=== PATIENT | male | born 1970 | race Caucasian/White ===

== ENCOUNTER 2024-07-21 11:55 | Outpatient (CLI) | payer OTHER, SELFPAY ==
--- NOTE | ~2024-07-21 | XR_ITS ---
EXAMINATION: XR chest 2V 07/21/2024 12:09 INDICATION: Dyspnea PROCEDURE: 2 view chest COMPARISON: No prior studies for comparison. FINDINGS: The lungs are clear. The cardiomediastinal silhouette is within normal limits. There are no pleural effusions. There is no pneumothorax suspected. IMPRESSION: 1: NO ACUTE CARDIOPULMONARY DISEASE. Reviewed, dictated and finalized at location B.
== END 2024-07-21 11:56 | disposition home or self-care (01) ==
LOC: ANHIMG 11:59
PROVIDERS: PCP Emergency Medicine; Visit Provider Emergency Medicine
DX: R06.00 Dyspnea, unspecified (principal)
CPT/HCPCS: 71046

== ENCOUNTER 2025-05-18 11:02 | Outpatient (CLI) | payer OTHER, SELFPAY ==
--- NOTE | ~2025-05-18 | XR_ITS ---
HISTORY: Lt big toe pain, REDNESS, SWELLING PT STATES HAS GOUT COMPARISON: None TECHNIQUE: 2 views of the left foot were performed FINDINGS: No acute fracture or dislocation is appreciated. Moderate degenerative disease is noted. The base of the fifth metatarsal is intact. Large calcaneal spur is noted. Significant soft tissue swelling along the plantar surface of the left forefoot, presumably within the area of clinical concern. Joint space narrowing within the first metatarsophalangeal joint space with sclerosis is identified. Normal bone mineralization is identified. Juxta-articular erosion is identified within the distal phalanx of the great toe, best visualized on lateral view No overhanging edges are appreciated. No discrete L5 identified Incidental notation is made of os trigonum. IMPRESSION: Degenerative disease with soft tissue swelling, as detailed above. Reviewed, dictated and finalized at location A.
--- OUTSIDE RECORDS SUMMARY | 2025-05-18 11:12 | XMS_ITS | Clinical Summary ---
Author Organization [facility] Address [address] [place] [address] Care Team Providers Care Bead Flipper Name Role Phone Rebeca Washington MD, Kirk Britton Primary Care Provider [phone] Source Comments [facility],non-owned Affiliates and Associated Physician Practices is amultiple site organization consisting of ambulatory clinics and hospital sitesin [place], [place], [place] and [place]. This disclosure is being madepursuant to the Care Everywhere program and may not contain all information available regarding this patient. Last updated 18.[employer] [facility] Allergies No known active allergies Medications * Be aware that medications may not be up to date on this document. Alwaysverify current medications with the patient. omeprazole (PRILOSEC OTC) 20 MG tabletIndication s:Diarrhea,Abdom inal pain, generalized Take 20 mg by mouth once daily. Active ALPRAZolam (XANAX) 0.25 MG tablet TAKE ONE TABLET BY MOUTH THREE TIMES A DAY NEEDED FOR ANXIETY 90 tablet 07/01/2018 Active Active Problems Problem Noted Date Diagnosed Date IGT (impaired glucose tolerance) a1c 6 6 Primary osteoarthritis of both knees 11/14/2015 Gastroesophageal reflux disease without esophagi tis 11/14/2015 Herpes simplex 08/25/2011 Overview (08/25/2011): Oral and genital, and causes dermatitis on valtrex suppression Family History Medical History Relation Name Comments Diabetes Brother CAD (Coronary Artery Disease) Other aunt uncle paternal Diabetes Other aunt uncle salgado rnal CAD (Coronary Artery Disease) Paternal Grandfather Relation Name Status Comments Brother Other Paternal Grandfather Social History Tobacco Use Types Packs/Day Years Used Date Smoking Tobacco: Never Smokeless Tobacco: Never Alcohol Use Standard Drinks/Week Comments Yes 0 (1 standard drink = 0.6 oz pur e alcohol) Sex and Gender Information Value Date Recorded Sex Assigned at Not on file Legal Sex Male 12:49 PM AUTOMATIC CHIEF Gender Identity Not on file Sexual Orientation Not on file Last Filed Vital Signs Vital Sign Reading Time Taken Comments Blood Pressure 115/61 06/06/2019 2:30 PM CDT Pulse 61 06/06/2019 2:49 PM CDT Temperature 37.1 C (98.8 F) 06/06/2019 11:02 AM CDT Respiratory Rate 18 06/06/2019 11:02 AM CDT Oxygen Saturation 96% 06/06/2019 2:30 PM CDT Inhaled Oxygen Concentration - - Weight 77.6 kg (171 lb) 06/06/2019 11:02 AM CDT Height 170.2 cm (5' 7) 06/06/2019 11:02 AM CDT Body Mass Index 26.78 06/06/2019 11:02 AM CDT Plan of Treatment Health Maintenance Due Date Last Done Comments COLOGUARD (AGES 45-75) - COLON CA SCREENING 1969 COLON MONITORING 1969 COLONOSCOPY - COLON CA SCREENING 1969 CT COLONOGRAPHY - COLON CA SCREENING 1969 Colorectal Cancer Screening 1969 FIT - COLON CA SCREENING 1969 FLEX SIG - COLON CA SCREENING 1969 HIV SCREENING 1984 HEPATITIS C SCREENING 03/17/1987 DTAP/TDAP/TD VACCINES (1 - Tdap) 1988 HEPATITIS B VACCINE (1 of 3 - 19+ 3-dose series) 1988 PNEUMOCOCCAL VACCINE 50+ (1 of 1 - PCV) 2019 ZOSTER VACCINE (1 of 2) 2019 LIPID TESTING 11/14/2020 11/14/2015, 08/25/2011 SCREENING FOR DIABETES 06/06/2022 9, 11/14/2015, 11/14/2015, Additional history exists COVID-19 VACCINE (1 - 2023- season) 2024 DEPRESSION SCREENING 09/27/2024 INFLUENZA VACCINE (#1) 2025 HIB VACCINE Aged Out No longer eligi ble based on patient's age to complete this topic HPV VACCINE Aged Out No longer eligi ble based on patient's age to complete this topic MENINGOCOCCAL (Group B) VACCINE SHARED DECISION-MAKING Aged Out No longer eligible based on patient's age to complete this topic MENINGOCOCCAL GROUPS A/C/Y/W VACCINE Aged Out No longer eligible based on patient's age to complete this topic Procedures Procedure Name Priority Date/Time Associated Diagnosis Comments COMPREHENSIVE METABOLIC PANEL STAT 06/06/2019 11:12 AM CDT LDL CHOLESTEROL DIRECT Routine 6 10:15 AM AUTOMATIC CHIEF Routine general medical examination at a health care facility from Last 3 Months or Most Recently Relevant to Health Maintenance Results * (ABNORMAL) COMPREHENSIVE METABOLIC PANEL (06/06/2019 11:12 AM CDT) Glucose 100 74 - 106 mg/dL 06/06/2019 11:37 AM [facility] Sodium 140 136 - 145 mmol/L 06/06/2019 11:37 AM [facility] Potassium 4.1 3.5 - 5.1 mmol/L 06/06/2019 11:37 AM [facility] Chloride 108(H) 98 - 107 mmol/L 06/06/2019 11:37 AM [facility] CO2 24 23 - 31 mmol/L 06/06/2019 11:37 AM [facility] Calcium 9.6 8.4 - 10.2 mg/dL 06/06/2019 11:37 AM [facility] Anion Gap 8 8 - 16 mmol/L 06/06/2019 11:37 AM [facility] BUN 16 8.4 - 25.7 mg/dL 06/06/2019 11:37 AM [facility] Creatinine 1.15 0.73 - 1.18 mg/dL 06/06/2019 11:37 AM [facility] Alkaline Phosphatase 70 40 - 150 U/L 06/06/2019 11:37 AM [facility] ALT 18 13 - 61 U/L 06/06/2019 11:37 AM [facility] AST 12 5 - 34 U/L 06/06/2019 11:37 AM [facility] Protein Total 7.3 6.4 - 8.3 gm/dL 06/06/2019 11:37 AM CDT [facility] Albumin 4.5 3.5 - 5.2 gm/dL 06/06/2019 11:37 AM CDT [facility] Bilirubin Total 0.7 0.2 - 1.2 mg/dL 06/06/2019 11:37 AM CDT [facility] eGFR by MDRD >60 >60 mL/min/1.7 3m2 06/06/2019 11:37 AM CDT [facility] eGFR by MDRD >60 >60 mL/min/1.7 3m2 06/06/2019 11:37 AM CDT [facility] Blood BLOOD SPECIMEN / Unknown Venipuncture / Unknown 06/06/2019 11:12 AM CDT 06/06/2019 11:16 AM CDT us Pilo Baumann MD LAB - CHEMISTRY ORDERABLES Fi nal Result [facility] [address] [place] [address] * (ABNORMAL) LDL CHOLESTEROL (11/14/2015 10:15 AM AUTOMATIC CHIEF) LDL Direct 119(H) 0 - 99 mg/dL [facility] ACCOUNT BILL Comment NOT NEEDED [facility] ACCOUNT BILL Comment:Ancillary determined the test is not needed Blood specimen (specimen) BLOOD SPECIMEN / Unknown 11/14/2015 10:15 AM AUTOMATIC CHIEF 11/14/2015 1:22 PM AUTOMATIC CHIEF Narrative Resulting Agency Comment [facility] [address] [facility] [phone] us Kirk Jose Jr., MD LAB - CHEMISTRY ORDERABLE S Final Result [facility] ACCOUNT BILL [address] [place] [address] from Last 3 Months or Most Recently Relevant to Health Maintenance Insurance [employer] Care Teams Bead Flipper Relationship Specialty Start Date End Date Kirk Jose Jr., MD [address] [place] [address] PCP - General Internal Medicine 11/25/11
--- OUTSIDE RECORDS SUMMARY | 2025-05-18 11:12 | XMS_ITS | Clinical Summary ---
Author Organization [facility] on Address [address] [place] [address] Phone Care Team Providers Care Record Producer Name Role Phone Unavailable Primary Care Provider Unavailabl e Allergies No known active allergies Medications omeprazole (PriLOSEC) 20 mg Tablet, Delayed Release (E.C.) Take 20 mg by mouth. Active triamcinolone acetonide (KENALOG) 0.1 % Cream Apply to affected area 2 times daily. 30 Gram 02/14/2019 Active Active Problems No known active problems Social History Tobacco Use Types Packs/Day Years Used Date Smoking Tobacco: Never Sex and Gender Information Value Date Recorded Sex Assigned at Not on file Legal Sex Male 5:28 PM CDT Gender Identity Not on file Sexual Orientation Not on file Last Filed Vital Signs Vital Sign Reading Time Taken Comments Blood Pressure 131/84 02/14/2019 5:44 PM CDT Pulse 67 02/14/2019 5:44 PM CDT Temperature 36.6 C (97.9 F) 02/14/2019 5:44 PM CDT Respiratory Rate 16 02/14/2019 5:44 PM CDT Oxygen Saturation 100% 02/14/2019 5:44 PM CDT Inhaled Oxygen Concentration - - Weight - - Height - - Body Mass Index - - Plan of Treatment Health Maintenance Due Date Last Done Comments DTAP/TDAP/TD VACCINES (1 - Tdap) 1988 HEPATITIS B VACCINES (1 of 3 - 19+ 3-dose series) 02/26 COLORECTAL SCREENING 2014 Colorectal Cancer Screening 2014 FIT-DNA Q 3 years 2014 FIT/FOBT Q 1 year 2014 Flex Sig/CT Colonography Q 5 years 2014 ZOSTER VACCINE (1 of 2) 2019 INFLUENZA VACCINE (#1) 2025
== END 2025-05-18 11:03 | disposition home or self-care (01) ==
PROVIDERS: PCP Emergency Medicine; Visit Provider Emergency Medicine
DX: M79.675 Pain in left toe(s) (principal); M19.072 Primary osteoarthritis, left ankle and foot
CPT/HCPCS: 73620

== ENCOUNTER 2025-07-20 01:51 | Day surgery (SDC) | payer OTHER, SELFPAY ==
[2025-07-10 11:23] VITALS: BMI 25.3
--- OUTSIDE RECORDS SUMMARY | 2025-07-20 01:53 | XMS_ITS | Clinical Summary ---
Author Organization [facility] [employer] Address [address] [place] [address] Care Team Providers Care Gear Cutting Machine Set Up Operator Name Role Phone Rebeca Washington MD, Kirk Britton Primary Care Provider [phone] Source Comments [facility] [employer],non-owned Affiliates and Associated Physician Practices is amultiple site organization consisting of ambulatory clinics and hospital sitesin [place], [place], [place] and [place]. This disclosure is being madepursuant to the Care Everywhere program and may not contain all information available regarding this patient. Last updated 18.[employer] Allergies No known active allergies Medications * [...] on file Legal Sex Male 12:49 PM FIRE SAFETY DIRECTOR Gender Identity Not on file Sexual Orientation [...] 06/06/2022 9, 11/14/2015, 11/14/2015, Additional history exists DEPRESSION SCREENING 09/27/2024 COVID-19 VACCINE (1 - season) 2025 INFLUENZA VACCINE (#1) 2025 HIB VACCINE Aged [...] LDL CHOLESTEROL DIRECT Routine 6 10:15 AM FIRE SAFETY DIRECTOR Routine general medical examination at a health care facility from Last 3 Months or Most Recently Relevant to Health Maintenance Results * (ABNORMAL) COMPREHENSIVE METABOLIC PANEL (06/06/2019 11:12 AM CDT) Glucose 100 74 - 106 mg/dL 06/06/2019 11:37 AM [facility] Sodium 140 136 - 145 mmol/L 06/06/2019 11:37 AM [facility] Potassium 4.1 3.5 - 5.1 mmol/L 06/06/2019 11:37 AM [facility] Chloride 108(H) 98 - 107 mmol/L 06/06/2019 11:37 AM [facility] CO2 24 23 - 31 mmol/L 06/06/2019 11:37 AM [facility] Calcium 9.6 8.4 - 10.2 mg/dL 06/06/2019 11:37 AM [facility] Anion Gap 8 8 - 16 mmol/L 06/06/2019 11:37 AM [facility] BUN 16 8.4 - 25.7 mg/dL 06/06/2019 11:37 AM [facility] Creatinine 1.15 0.73 - 1.18 mg/dL 06/06/2019 11:37 AM [facility] Alkaline Phosphatase 70 40 - 150 U/L 06/06/2019 11:37 AM [facility] ALT 18 13 - 61 U/L 06/06/2019 11:37 AM [facility] AST 12 5 - 34 U/L 06/06/2019 11:37 AM [facility] Protein Total 7.3 6.4 - 8.3 gm/dL 06/06/2019 11:37 AM CDT [facility] Albumin 4.5 3.5 - 5.2 gm/dL 06/06/2019 11:37 AM CDT [facility] Bilirubin Total 0.7 0.2 - 1.2 mg/dL 06/06/2019 11:37 AM CDT [facility] eGFR by MDRD >60 >60 mL/min/1.7 3m2 06/06/2019 11:37 AM CDT [facility] eGFR by MDRD >60 >60 mL/min/1.7 3m2 06/06/2019 11:37 AM CDT [facility] Blood BLOOD SPECIMEN / Unknown Venipuncture / Unknown 06/06/2019 11:12 AM CDT 06/06/2019 11:16 AM CDT us Pilo Baumann MD LAB - CHEMISTRY ORDERABLES Fi nal Result [facility] [address] [place] [address] * (ABNORMAL) LDL CHOLESTEROL (11/14/2015 10:15 AM FIRE SAFETY DIRECTOR) LDL Direct 119(H) 0 - 99 mg/dL [facility] ACCOUNT BILL Comment NOT NEEDED [facility] ACCOUNT BILL Comment:Ancillary determined the test is not needed Blood specimen (specimen) BLOOD SPECIMEN / Unknown 11/14/2015 10:15 AM FIRE SAFETY DIRECTOR 11/14/2015 1:22 PM FIRE SAFETY DIRECTOR Narrative Resulting Agency Comment [facility] [address] [facility] [id number] us Kirk Jose Jr., MD LAB - CHEMISTRY ORDERABLE S Final Result [facility] ACCOUNT BILL [address] [place] [address] from Last 3 Months or Most Recently Relevant to Health Maintenance Insurance [employer] Care Teams Gear Cutting Machine Set Up Operator Relationship Specialty Start Date End Date Kirk Jose Jr., MD [address] [place] [address] PCP - General Internal Medicine 11/25/11
--- OUTSIDE RECORDS SUMMARY | 2025-07-20 01:53 | XMS_ITS | Clinical Summary ---
Author Organization [facility] Address [address] [place] [id number] Care Team Providers Care Machine Maintenance Mechanic Name Role Phone Karen Rob Primary Care Provider Allergies No known active allergies Medications omeprazole EC (PRILOSEC OTC) 20 MG tablet Take 1 tablet (20 mg total) by mouth daily. Active Active Problems Problem Noted Date Diagnosed Date IGT (impaired glucose tolerance) 11/17/2015 Gastroesophageal reflux disease without esophagi tis 11/14/2015 Primary osteoarthritis of both knees 11/14/2015 Herpes simplex 08/25/2011 Overview (01/15/2023): Oral and genital, and causes dermatitis on valtrex suppression Family History Medical History Relation Comments Diabetes Brother Rheumatoid Arthritis Brother fatty liver Brother No Known Problems Father Rheumatoid Arthritis Mother Diabetes Paternal Grandfather Heart Disease Paternal Grandfather AR Paternal Grandmother AR Paternal Uncle Relation Status Comments Brother Alive Father Alive Maternal Grandfather Maternal Grandmother Mother Alive Paternal Grandfather Paternal Grandmother Paternal Uncle Social History Tobacco Use Types Packs/Day Years Used Date Smoking Tobacco: Never Passive Smoke Exposure: Past Smokeless Tobacco: Never Alcohol Use Standard Drinks/Week Comments Yes 0 (1 standard drink = 0.6 oz pur e alcohol) 2 x week PHQ-2 Answer Date Recorded Patient Health Questionnaire-2 Score 1 01/15/2023 Sex and Gender Information Value Date Recorded Sex Assigned at Not on file Legal Sex Male 9:10 AM CDT Gender Identity Not on file Sexual Orientation Not on file Last Filed Vital Signs Vital Sign Reading Time Taken Comments Blood Pressure 133/88 01/15/2023 10:54 AM CDT Pulse 74 01/15/2023 10:54 AM CDT Temperature 36.7 C (98 F) 01/15/2023 10:54 AM CDT Respiratory Rate 16 01/15/2023 10:54 AM CDT Oxygen Saturation 98% 01/15/2023 10:54 AM CDT Inhaled Oxygen Concentration - - Weight 88.5 kg (195 lb) 01/15/2023 10:54 AM CDT Height 177.8 cm (5' 10) 01/15/2023 10:54 AM CDT Body Mass Index 27.98 01/15/2023 10:54 AM CDT Plan of Treatment Health Maintenance Due Date Last Done Comments Colorectal Cancer Screening Colonoscopy (10 Years) 1969 Annual Physical 1972 Hepatitis C 1987 DTaP, Tdap and Td Vaccines ( 1 - Tdap) 1988 Hepatitis B Vaccines (1 of 3 - 19+ 3-dose series) 1988 Pneumococcal Vaccine: 50+ Years (1 of 1 - PCV) 2019 Zoster Vaccines (1 of 2) 2019 COVID-19 Vaccine (3 - 2024-2 6 season) 2025 10/24/2021, 10/02/2021 Influenza Adult (#1) 2025 Hepatitis A Vaccines Aged Out No long er eligible based on patient's age to complete this topic Meningococcal B Vaccine Aged Out No l onger eligible based on patient's age to complete this topic Meningococcal Vaccine Aged Out No solange ken eligible based on patient's age to complete this topic RSV Immunizations Under 20 Months Aged Out No longer eligible b ased on patient's age to complete this topic Insurance [facility] Care Teams Machine Maintenance Mechanic Relationship Specialty Start Date End Date Karen Rob APNP Formerly named [facility] [place], [place] [id number] PCP - General NURSE PRACTITIONER 01/15/23
--- OUTSIDE RECORDS SUMMARY | 2025-07-20 01:53 | XMS_ITS | Clinical Summary ---
Author Organization [facility] on Address [address] [address] Phone Care Team Providers Care Fabric Coating Supervisor Name Role Phone Unavailable Primary Care Provider [...]
[2025-07-20 10:24] VITALS: BP 112/70; PULSE 70; RESP 18; TEMP 36.4; O2SAT 100
[2025-07-20] MEDS: LACTATED RINGERS 1,000 ML 150 ML IV CONT (10:33)
--- NOTE | 2025-07-20 11:21 | PM.HPGS ---
History of Present Illness History of Present Illness Consent: Risks, benefits, and alternatives have been discussed and questions answered. Patient agrees to proceed with procedure. Chief complaint: GERD/SCREENING Narrative: Angel Merida is a 55 year old male here for first egd and colonoscopy, h/o gerd on omeprazole Review of Systems Review of Systems: All systems reviewed & are unremarkable except as noted in HPI and below PMFSH Past Medical History Medical History (Updated 07/20/25 @ 11:22 by Armaan Thakur MD) Colon cancer screening GERD (gastroesophageal reflux disease) Social History Social History Smoking status: Never smoker Alcohol intake: former Alcohol use details: quit in 03/2025 Substance use: never Substance use type: does not use Living arrangements: with family Spiritual care concerns: No Meds Home Medications and Allergies Home Medications ?Medication ?Instructions ?Recorded ?Confirmed ?Type omeprazole 20 mg capsule,delayed 20 mg PO DAILY 07/10/25 07/20/25 History release Allergies Allergy/AdvReac Type Severity Reaction Status Date / Time No Known Allergies Allergy Verified 07/20/25 10:23 Vital Signs Vital Signs - 24 hr 07/20/25 10:24 Temperature 97.6 F Pulse Rate 70 Respiratory Rate 18 Blood Pressure 112/70 Pulse Oximetry 100 Oxygen Delivery Room Air Exam Const: General: comfortable and no acute distress HENMT: Face/Nose/Sinus: Normal nares present Eyes: General: appearance normal, both eyes and all related structures Neck: Neck: no JVD Resp: Auscultation: clear to auscultation bilaterally Cardio: Rate: regular rate Rhythm: regular rhythm GI: Inspection: non-distended GI Palp: Yes Soft to palpation Skin: General skin exam: normal color Extrem: General: normal to inspection Psych: Mental Status: mental status grossly normal Assessment and Plan Assessment and plan (1) GERD (gastroesophageal reflux disease): Code(s): K21.9 - Gastro-esophageal reflux disease without esophagitis Status: Acute Assessment and Plan: egd (2) Colon cancer screening: Code(s): Z12.11 - Encounter for screening for malignant neoplasm of colon Status: Acute Assessment and Plan: colonoscopy
--- NOTE | 2025-07-20 11:21 | WPDANESEPPF ---
Anes - Initial Pre Proc Eval Procedure: Operation Date: 07/20/25 11:30 Proposed Procedures p EGD & Screening Colonoscopy - Armaan Thakur MD Date/Time: 07/20/25 11:21 Surgeon: Armaan Thakur MD Pre Op Diagnosis: GERD/SCREENING Patient Data Age: 55 Gender: M Height: 1.7 m Weight: 70.8 kg Last Vital Signs Temp 97.6 F 07/20/25 10:24 Pulse 70 07/20/25 10:24 Resp 18 07/20/25 10:24 BP 112/70 07/20/25 10:24 Pulse Ox 100 07/20/25 10:24 O2 Del Method Room Air 07/20/25 10:24 Allergies Allergy/AdvReac Type Severity Reaction Status Date / Time No Known Allergies Allergy Verified 07/20/25 10:23 Home Medications ?Medication ?Instructions ?Recorded ?Confirmed ?Type omeprazole 20 mg capsule,delayed 20 mg PO DAILY 07/10/25 07/20/25 History release Patient hx anesthesia problems: none Family hx anesthesia problems: none Results Review: All pre-operative results and documents have been reviewed as part of the pre-operative evaluation. [facility] Past Medical History Medical History (Updated 07/20/25 @ 11:22 by Armaan Thakur MD) Colon cancer screening GERD (gastroesophageal reflux disease) Social History Social History Smoking status: Never smoker Alcohol intake: former Alcohol use details: quit in 03/2025 Substance use: never Substance use type: does not use Living arrangements: with family Spiritual care concerns: No Anes - Eval Final PreProcedure Day of Procedure 07/20/25 11:21 Patient weight: normal Lungs: normal air movement Airway: Mallampati scale class II Neurological: alert and oriented Last oral intake: >/= 8 hours ASA classification: I Emergent: no Anesthetic plan: delay Anesthesia type and monitoring: general GIVS and standard monitoring Results Review: All pre-operative results and documents have been reviewed as part of the pre-operative evaluation. Healthy, overall no cp or sob w walking 1-2 fos. GERD, on ppi. Informed Consent: The patient's anesthetic plan and its attendant risks and benefits were discussed with the patient/family/POA. Questions were solicited and answers provided to the satisfaction of the patient/family/POA.
--- NOTE | 2025-07-20 11:34 | S_PTH ---
PATIENT: Angel Merida LOC: [facility] Klein#:[id number] AGE/SX: 55/M ROOM: RE07/20/[address]: Armaan Thakur MD : 1970 BED: DIS: 07/20/2025 SPEC #: [id number] RECD: 07/20/25 13:26 STATUS: MADHURI REAlesia #: [id number] MANUEL: 07/20/25 11:[address]: Armaan Thakur DEPT: [facility] Surgical RECD BY: Haleigh Morrow ENTERED: 07/20/25 13:27 SP TYPE: Surgical OTHR DR: Aditya Redmond MD Tissues: A - Gastric Biopsy B - Colon Polypectomy C - Colon Polypectomy Procedures: Hematoxylin and Eosin Stain Gross and Microscopic Level 4
--- NOTE | 2025-07-20 11:35 | SUR.OPER ---
EGD ended at 1129. Colonoscopy started at 1135.
[2025-07-20 11:47] VITALS: BP 94/62; PULSE 74; RESP 18; O2SAT 97
[2025-07-20 11:57] VITALS: BP 98/62; PULSE 72; RESP 18; O2SAT 97
[2025-07-20 12:07] VITALS: BP 119/77; PULSE 71; RESP 19; O2SAT 99
== END 2025-07-20 12:27 | disposition home or self-care (01) ==
PROVIDERS: PCP Emergency Medicine; Visit Provider Internal Medicine Gastroenterology
PROC: 0DJ08ZZ Inspection of Upper Intestinal Tract, Via Natural or Artificial Opening Endoscopic (ICD-10-PCS; CPT 45378; principal; 2025-07-20 11:30)
DX: Z12.11 Encounter for screening for malignant neoplasm of colon (principal); D12.5 Benign neoplasm of sigmoid colon; D36.15 Benign neoplasm of peripheral nerves and autonomic nervous system of abdomen; K64.8 Other hemorrhoids; K64.4 Residual hemorrhoidal skin tags; K21.9 Gastro-esophageal reflux disease without esophagitis
CPT/HCPCS: 45385; 43239; 88305; J2003; J2704; J7120